=== PATIENT | female | born 1945 | race Caucasian/White ===

== ENCOUNTER 2023-02-04 12:51 | Emergency (ER) | payer MEDICARE ==
[~2023-02-04] VITALS: Ht 170.2 cm; Wt 52.2 kg
[2023-02-04] MEDS ORDERED: LEVOTHYROXINE75 MC1 PO (13:28)
[2023-02-04] MEDS ORDERED: LOSARTAN POTASS50 MG PO (13:28)
[2023-02-04] MEDS ORDERED: ESTRADIOL0.5 MG PO (13:30)
[2023-02-04 15:35] VITALS: BP 170/79
--- NOTE | 2023-02-04 20:54 | EKG ---
[facility] [address] [place] [address] Signed Normal sinus rhythm with sinus arrhythmia Normal ECG No previous ECGs available Confirmed by Ender Melchor MD () on 02/04/2023 8:53:50 PM Electronically Signed By: ENDER MELCHOR MD 02/04/232053 PATIENT NAME: MACY WINSTON Electrocardiogram DATE OF : 47 PHYSICIAN: ENDER MELCHOR MD REPORT #: [id number] REPORT IS CONFIDENTIAL AND NOT TO BE RELEASED WITHOUT AUTHORIZATION
== END 2023-02-04 15:35 | disposition home or self-care (01) ==
LOC: ED 12:51
DX: R55 Syncope and collapse (principal); Z88.8 Allergy status to other drugs, medicaments and biological substances; Z79.899 Other long term (current) drug therapy
CPT/HCPCS: 36415; 80053; 83735; 84484; 85025; 93005; 93010; 99284-25; J7030